=== PATIENT | male | born 1940 | race Caucasian/White ===

== ENCOUNTER 2018-02-12 05:09 | Inpatient (IN) ==
[2018-02-12] MEDS ORDERED: Dexamethasone Inj 20 MG/5 ML Vial IV.PUSH SCH (05:40)
[2018-02-12] MEDS ORDERED: Sodium Chlor 0.9% Inj 40 ML, Bupivacaine Liposo PF 1.3% Inj 20 ML, Bupivacaine/Epi PF 0... P-ARTICULR SCH ×3 (05:40)
[2018-02-12] MEDS ORDERED: Celecoxib 200 MG Capsule PO SCH (05:40)
[2018-02-12] MEDS ORDERED: Gabapentin 300 MG Capsule PO SCH (05:40)
[2018-02-12] MEDS ORDERED: Chlorhexidine Gluconate 2% 1 Pack (2 Cloths) TOPICAL ONE (05:45)
[2018-02-12] MEDS ORDERED: Sodium Chlor 0.9% Inj 500 ML IV.CONT ONE (05:45)
[2018-02-12] MEDS ORDERED: Metoprolol Tartrate 25 MG Tablet PO ONE (05:45)
[2018-02-12] MEDS ORDERED: Chlorhexidine 4% Topical 120 APPLIC/120 ML Bottle TOPICAL SCH (05:45)
[2018-02-12] MEDS ORDERED: Famotidine PF Inj 20 MG/2 ML Vial IV.PUSH SCH (06:00)
[2018-02-12] MEDS ORDERED: TRANEXAMIC ACID IV.SIG SCH (06:00)
[2018-02-12] MEDS ORDERED: ceFAZolin 2 GM Premix Inj 2 GM/50 ML PIGGYBACK IV.SIG SCH (06:00)
[2018-02-12] MEDS ORDERED: SODIUM CHLOR 0.9% IV.SIG SCH (06:00)
[2018-02-12] MEDS ORDERED: fentaNYL Citrate Inj 100 MCG/2 ML Ampul ONE (06:17)
[2018-02-12] MEDS ORDERED: fentaNYL Citrate Inj 250 MCG/5 ML Ampul ONE (06:18)
[2018-02-12] MEDS ORDERED: Famotidine PF Inj 20 MG/2 ML Vial ONE (06:18)
[2018-02-12] MEDS ORDERED: Tobramycin Sulfate 1,200 MG Vial (for ortho/sterile core) OTHER ONE (06:21)
[2018-02-12] MEDS ORDERED: Ketamine Inj 50 MG/5 ML Syringe IV.PUSH ONE (06:29)
[2018-02-12] MEDS: Vancomycin Inj 1,000 MG in Sodium Chlor 0.9% Inj 250 ML IV.SIG SCH ×2 (06:40→17:40)
[2018-02-12] MEDS ORDERED: Sugammadex Inj 200 MG/2 ML Vial IV.PUSH ONE (09:00)
[2018-02-12] MEDS ORDERED: prednisoLONE Acetate 1% Opth Susp 5 ML Bottle EACH EYE SCH (09:00)
[2018-02-12] MEDS ORDERED: Post-op Orders (for Pharmacy) OTHER STA (09:01)
--- NOTE | 2018-02-12 09:08 | P.OP ---
- Preoperative Diagnosis (1) Primary osteoarthritis of right hip Date of procedure: 02/12/18 Procedure: Right total hip arthroplasty by anterior approach Anesthesia: GETA Surgeon: Migel Mg MD Lip Cutter And Scorer: SAMMI Holley PA-C The surgical procedure was assisted by my physician marketing assistant manager. My P.A. presence was necessary throughout this case for the manipulation and positioning of the surgical extremity. My P.A. was assisting me throughout the duration of this procedure. The skill set of a physician marketing assistant manager was medically necessary to complete this procedure. During the surgical case the laboratory technologist was working at the back table and the physician marketing assistant manager was directly assisting me. Operation and Findings: PLAN OF ACTIVITY Weight bear as tolerated. IMPLANTS USED DePuy Corail size [15] collared stem with a size [54] Stringer Gription cup, [54 /36] Altrx poly liner, and a [36 +5] metal head. DETAILS OF PROCEDURE: This patient has a long history of hip pain. Patient was found to have severe osteoarthritis. The patient had radiographic evidence of joint space narrowing with [id number] arthritis and osteophytes around the acetabulum as well as the femoral head. There was also some cystic changes. The patient failed conservative treatment with pain medications, anti-inflammatories, physical therapy, assistive devices including a cane, as well as therapeutic injection of the hip. Patient's hip arthritis was limiting his ability to ambulate and perform activities of daily living. The patient wished to proceed with surgery and informed consent was obtained. Operative site was marked. I discussed both posterior approach and anterior approach with the patient and decision was made for anterior approach. Patient was brought to OR and placed on OR table. IV sedation and general anesthesia was administered by anesthesiologist. Patient positioned on a Marjan table and was given IV antibiotics. Time-out procedure was performed. The hip and thigh were prepped with alcohol followed by Hibiclens. The thigh was draped in the usual sterile fashion. Clean Air Suite was used for this procedure. The procedure began with a 5-inch incision over the anterolateral thigh. Subcutaneous tissue was dissected with Bovie. The fascia over the tensa fasciae latae was incised. Care was taken to avoid injury to the lateral femoral cutaneous nerve. The tensor muscle was retracted laterally. Sartorius was retracted medially. Retractors were now placed. The reflected head of the rectus is now elevated. A capsulotomy was performed over the anterior head capsule. Sutures were placed to help retract the capsule. At this point the femoral head and neck were identified. With soft tissue protected, oscillating saw was used to make a cut through the femoral neck, the femoral head was now removed. At this point attention was turned to preparation of the acetabulum. The labrum was excised. The acetabulum was sequentially reamed up to size [54]. A Stringer cup was now placed. Fluoroscopy was used to aid in identification of appropriate version. Cup was fully impacted and found to have excellent fit. Hole eliminator was now placed. A screw was placed through the shell and the acetabular dome. Fluoroscopy confirmed appropriate screw placement. The liner was now impacted into the cup. At this point the hip was externally rotated. A hook was placed around the proximal femur. The capsule was released off the lateral and medial femur. The hip was now extended and adducted. Retractors were placed around the proximal femur to allow for exposure. A box osteotome was used to remove the lateral cortex of the femoral neck. A broach was used to help lateralize the prosthesis. Canal finder was used to create a path down the canal. Next, the canal was sequentially broached up to size [15]. This was found to be an excellent fit. Calcar planer was placed. A standard head was placed, and the hip was reduced. The hip was found to have excellent stability with good range of motion. The leg lengths were measured under fluoroscopy and found to be equal compared to preoperatively. Trial broach was removed. The Corail stem was opened. Stem was fully impacted into the proximal femur in appropriate version. The femoral head was placed. The hip was again reduced. Fluoroscopy confirmed excellent alignment of prosthesis. The wound was thoroughly irrigated and capsule was closed with #1 Vicryl. The fascia over the tensor fasciae muscle was closed with #1 Vicryl, subcutaneous tissue was closed with 3-0 Vicryl and the skin was closed with maryanne and Dermabond skin closure. A drain was placed deep prior to closure. The capsule layers, muscle, and subcutaneous tissue were injected with a mixture of saline and bupivicaine. Dressings were applied. The patient was transferred to Recovery Room in stable condition.
[2018-02-12] MEDS ORDERED: Promethazine 25 MG Supp RECTAL PRN (10:00)
[2018-02-12] MEDS ORDERED: Bisacodyl 10 MG Supp RECTAL PRN (10:00)
[2018-02-12] MEDS ORDERED: Morphine Inj 4 MG/ML Vial IV.PUSH PRN (10:00)
[2018-02-12 10:02] LABS: Baso % (Auto) 0.1 % (0.0-2.0); Lymph # (Auto) 0.8 th/mm3 (1.0-4.8); Lymph % (Auto) 4.8 % (9.0-44.0); Mean Corpuscular HGB Conc 32.6 % (32.0-36.0); Mean Corpuscular Hemoglobin 26.9 pg (27.0-34.0); Mean Corpuscular Volume 82.4 fL (80.0-100.0); Mean Platelet Volume 7.1 fL (7.0-11.0); Mono # (Auto) 0.4 th/mm3 (0.0-0.9); Mono % (Auto) 2.7 % (0.0-8.0); Neut # (Auto) 14.6 th/mm3 (1.8-7.7); Neut % (Auto) 92.4 % (16.0-70.0); Platelet Count 259 th/mm3 (150-450); Red Blood Count 3.16 mil/mm3 (4.50-5.90); Red Cell Distribution Width 18.2 % (11.6-17.2); White Blood Count 15.9 th/mm3 (4.0-11.0)
[2018-02-12 10:07] LABS: Hemoglobin 8.5 gm/dL (13.0-17.0)
[2018-02-12] MEDS ORDERED: Tranexamic Acid Inj 1,000 MG in Sodium Chlor 0.9% Inj 100 ML IV.SIG SCH (11:00)
[2018-02-12] MEDS ORDERED: CYCLOSPORINE 0.05% EACH EYE SCH (11:00)
[2018-02-12 11:13] LABS: Hemoglobin 7.7 gm/dL (13.0-17.0)
[2018-02-12 11:18] LABS: Hematocrit 23.6 % (39.0-51.0)
[2018-02-12] MEDS: Calcium/Vitamin D 250/125 MG Tablet PO SCH ×2 (13:53→17:48)
--- NOTE | 2018-02-12 15:28 | XR ---
EXAM DATE: 02/12/2018 3:06 PM EST AGE/SEX: 77 years / Male INDICATIONS: Right total hip. CLINICAL DATA: This is the patient's initial encounter. Patient reports that signs and symptoms have been present for 1 day and indicates a pain score of Nonresponsive. MEDICAL/SURGICAL HISTORY: Non-responsive. Non-responsive. COMPARISON: No prior exams available for comparison. FINDINGS: 3 spot images obtained in the operating room during a procedure demonstrates right total hip arthropl asty hardware in place. The acetabular component contains a single superior screw. The distal aspect of the screw is not visualized. The femoral component contains a medial collar and is noncemented. No unexpected finding is identified. CONCLUSION: Images document right total hip arthroplasty hardware, as above. Electronically signed by: Trell Gardner MD Board Certified Radiologist 02/12/2018 3:26 PM EST
[2018-02-12] MEDS: ceFAZolin 2 GM Premix Inj 2 GM/50 ML PIGGYBACK IV.SIG SCH ×2 (15:47→23:59)
--- NOTE | 2018-02-12 17:17 | P.CONIM ---
History of Present Illness Service: Hospitalist Consult date: 02/12/18 Requesting Physician: Migel Mg Reason for Consult: Medical management Primary Care Provider: Dr Katherine Espinoza Chief Complaint: Hip pain History of Present Illness: Patient is a 77-year-old male with a past medical history of hip pain/osteoarthritis, A. fib on Eliquis, hypertension, hyperlipidemia, glaucoma, and COPD (patient denies but is reliant upon inhalers) . Patient was admitted due to his right-sided hip pain which failed conservative management. A right total hip arthroplasty with anterior approach was done by Dr. Migel Mg on 01/13/18. Hospitalist service consulted for medical management. Patient is seen lying in bed post surgery. His is at bedside. Reports that his pain is well controlled. He is not having any shortness of breath or chest pain. No syncope or dizziness. No nausea vomiting or diarrhea. Nursing is noted to be hanging second bag of PRBCs. Reports that first bag was tolerated well with no adverse events.. Review of Systems Review of Systems: all other systems reviewed are negative [facility] Medical History Medical History Afib (Acute) Ambulates with cane (Acute) Arthritis (Acute) Depression (Acute) Full dentures (Acute) GERD (gastroesophageal reflux disease) (Acute) Glaucoma (Acute) Hypertension (Acute) Respiratory disorder (Acute) Thrush of mouth and esophagus (Acute) Wears glasses (Acute) Wears hearing aid in both ears (Acute) Wears partial dentures (Acute) Surgical History Surgical History H/O colonoscopy (Acute) History of esophagogastroduodenoscopy (EGD) (Acute) History of colostomy (Acute) History of colostomy reversal (Acute) History of corneal transplant (Acute) History of partial colectomy (Acute) History of total left knee replacement (TKR) (Acute) History of total right knee replacement (Acute) S/P ablation of atrial fibrillation (Acute) Status post cataract extraction of both eyes with insertion of intraocular lens (Acute) Social History Social History Substance History: No History of Abuse Second Hand Smoke Exposure: No Smoking Status: Smoker, status unknown Tobacco Type: Cigarettes How Often Do You Have a Drink Containing Alcohol: 2 to 4 times a month Recent Travel in [place] within the Last 8 Weeks: No Recent Out of Country Travel within the Last 8 Weeks: No Immunization History Hx Influenza Vaccine This Season: Yes Medications and Allergies Allergies Allergy/AdvReac Type Severity Reaction Status Date / Time No Known Allergies Allergy Verified 02/04/18 09:19 Home Medications Medication Instructions Recorded Confirmed Type albuterol sulfate 2 puff INHALATION Q6H PRN 02/04/18 02/12/18 History apixaban 5 mg PO BID 02/04/18 02/12/18 History brimonidine 1 drp OPHTHALMIC (EYE) TID 02/04/18 02/12/18 History bumetanide 2 mg PO DAILY 02/04/18 02/12/18 History cholecalciferol (vitamin D3) 2,000 unit PO DAILY 02/04/18 02/12/18 History [Vitamin D3] cyclosporine 1 drp OPHTHALMIC (EYE) Q12H 02/04/18 02/12/18 History latanoprost 1 drp OPHTHALMIC (EYE) QPM 02/04/18 02/12/18 History metoprolol succinate 25 mg PO DAILY 02/04/18 02/12/18 History pantoprazole 40 mg PO DAILY 02/04/18 02/12/18 History potassium chloride 20 meq PO BID 02/04/18 02/12/18 History prednisolone acetate 1 drp OPHTHALMIC (EYE) DAILY 02/04/18 02/12/18 History sertraline 100 mg PO DAILY 02/04/18 02/12/18 History simvastatin 20 mg PO QPM 02/04/18 02/12/18 History tiotropium bromide 1 cap INHALATION DAILY 02/04/18 02/12/18 History vitamins A,C,F-[id number] 1 cap PO BID 02/04/18 02/12/18 History [PreserVision AREDS] Active Medications: Active Medications Acetaminophen (Ofirmev Inj) 1,000 mg IV.SIG ONCE ELIU Stop: 02/12/18 21:00 Last Admin: 02/12/18 06:18 Dose: 1,000 mg Hydrocodone Bitart/Acetaminophen ([place] 10/325) 1 tab PO Q3H PRN PRN Reason: Pain Scale 8 to 10 Hydrocodone Bitart/Acetaminophen ([place] 5/325) 1 tab PO Q3H PRN PRN Reason: PAIN SCALE 3 TO 5 Hydrocodone Bitart/Acetaminophen ([place] 7.5/325) 1 tab PO Q3H PRN PRN Reason: Pain Scale 6 to 7 Al Hydroxide/Mg Hydroxide (Milk Of Magnesia Liq) 30 ml PO BID PRN PRN Reason: MILD CONSTIPATION Albuterol (Ventolin Hfa Inh) 2 puff INH Q6H PRN PRN Reason: Shortness Of Breath Apixaban (Eliquis) 5 mg PO BID [facility] Bisacodyl (Dulcolax Supp) 10 mg RECTAL DAILY PRN PRN Reason: SEVERE CONSITIPATION Brimonidine Tartrate (Alphagan P 0.15% Opth Drops) 1 drops EACH EYE TID [facility] Bumetanide (Bumex) 2 mg PO DAILY [facility] Calcium/Vitamin D (Oscal With D 250/125 Mg) 1 tab PO TID [facility] Last Admin: 02/12/18 13:53 Dose: 1 tab Celecoxib (Celebrex) 400 mg PO ONCE [facility] Stop: 02/12/18 21:00 Last Admin: 02/12/18 06:26 Dose: 400 mg Chlorhexidine Gluconate (Hibiclens 4% Topical) 1 applicatio TOPICAL ONCE [facility] Stop: 02/16/18 05:44 Last Admin: 02/12/18 06:00 Dose: 1 applicatio Sodium Chloride 40 ml/Bupivacaine Liposome 20 ml/Bupivacaine HCl/Epinephrine Bitart 20 ml 0 ml P-ARTICULR ONCE [facility] Stop: 02/12/18 21:00 Last Admin: 02/12/18 07:49 Dose: 60 bag Dexamethasone Sodium Phosphate (Decadron Inj) 10 mg IV.PUSH ONCE [facility] Stop: 02/12/18 21:00 Last Admin: 02/12/18 06:11 Dose: 10 mg Diphenhydramine HCl (Benadryl) 25 mg PO Q6H PRN PRN Reason: ITCHING Famotidine (Pepcid Pf Inj) 20 mg IV.PUSH ONCE [facility] Stop: 02/12/18 21:00 Last Admin: 02/12/18 06:14 Dose: 20 mg Gabapentin (Neurontin) 300 mg PO ONCE [facility] Stop: 02/12/18 21:00 Last Admin: 02/12/18 06:26 Dose: 300 mg Lactated Ringer's (Lr 1000 Ml Inj) 1,000 mls @ 30 mls/hr IV.CONT .Q24H ONE Stop: 02/13/18 05:44 Last Admin: 02/12/18 06:10 Dose: 30 mls/hr Sodium Chloride (Ns Inj) 500 mls @ 30 mls/hr IV.CONT .[id number] ONE Stop: 02/12/18 22:24 Last Admin: 02/12/18 06:38 Dose: Not Given Cefazolin Sodium/Dextrose (Ancef 2 Gm Premix Inj) 2 gm in 50 mls @ 100 mls/hr IV.SIG CLINICAL TRIAL COORDINATOR ELIU Stop: 02/16/18 05:59 Last Infusion: 02/12/18 07:50 Dose: Infused Tranexamic Acid 1,683 mg/ (Sodium Chloride) 116.83 mls @ 200 mls/hr IV.SIG ONCE ELIU Stop: 02/12/18 21:00 Last Infusion: 02/12/18 07:47 Dose: Infused Vancomycin HCl 1,000 mg/ (Sodium Chloride) 250 mls @ 250 mls/hr IV.SIG CLINICAL TRIAL COORDINATOR ELIU Stop: 02/15/18 05:42 Last Infusion: 02/12/18 07:48 Dose: Infused Acetaminophen (Ofirmev Inj) 1,000 mg in 100 mls @ 400 mls/hr IV.SIG Q12H ELIU Stop: 02/14/18 06:14 Cefazolin Sodium/Dextrose (Ancef 2 Gm Premix Inj) 2 gm in 50 mls @ 200 mls/hr IV.SIG Q8H ELIU Stop: 02/13/18 08:14 Last Infusion: 02/12/18 16:02 Dose: Infused Lactated Ringer's (Lr 1000 Ml Inj) 1,000 mls @ 80 mls/hr IV.CONT .[id number] ELIU Last Admin: 02/12/18 10:03 Dose: 80 mls/hr Vancomycin HCl 1,000 mg/ (Sodium Chloride) 250 mls @ 200 mls/hr IV.SIG Q12H ELIU Stop: 02/13/18 07:14 Lactulose (Lactulose Liq) 30 ml PO DAILY PRN PRN Reason: SEVERE CONSITIPATION Latanoprost (Xalatan 0.005% Opth Drops) 1 drop EACH EYE QPM [facility] Metoprolol Succinate (Toprol Xl) 25 mg PO DAILY [facility] Miscellaneous Information (Misc Nursing Information) 0 each OTHER UNSCH PRN PRN Reason: SEE LABEL COMMENTS Stop: 02/13/18 09:26 Morphine Sulfate (Morphine Inj) 3 mg IV.PUSH Q3H PRN PRN Reason: BREAKTHROUGH PAIN Multivitamins/Minerals (Ocuvite With Lutein) 1 tab PO BID [facility] Ondansetron HCl (Zofran Inj) 4 mg IV.PUSH ONCE [facility] Stop: 02/12/18 21:00 Last Admin: 02/12/18 06:16 Dose: 4 mg Ondansetron HCl (Zofran Odt) 4 mg PO Q6H PRN PRN Reason: NAUSEA OR VOMITING Pantoprazole Sodium (Protonix) 40 mg PO DAILY [facility] Cyclosporine 0.05% 1 (Drop Each Eye Bid) 0 each EACH EYE BID [facility] Potassium Chloride (K-Dur) 20 meq PO BID [facility] Povidone Iodine (Betadine 10% Oint) 1 applicatio TOPICAL ONCE [facility] Stop: 02/12/18 21:00 Pravastatin Sodium (Pravachol) 40 mg PO QPM [facility] Prednisolone Acetate (Pred Forte 1% Opth Susp) 1 drop EACH EYE DAILY [facility] Promethazine HCl (Phenergan) 25 mg PO Q6H PRN PRN Reason: NAUSEA OR VOMITING Promethazine HCl (Phenergan Supp) 25 mg RECTAL Q6H PRN PRN Reason: NAUSEA OR VOMITING Senna/Docusate Sodium (Ivory-Colace) 1 tab PO BID [facility] Sennosides (Senokot) 17.2 mg PO BID PRN PRN Reason: Moderate Constipation Sertraline HCl (Zoloft) 100 mg PO DAILY [facility] Sodium Chloride (Ns Flush) 2 ml IV.FLUSH BID [facility] Sodium Chloride (Ns Flush) 2 ml IV.FLUSH PRN PRN PRN Reason: FLUSH AFTER USING IV ACCESS Tiotropium [place] (Spiriva 18 Mcg Inh) 18 mcg INH DAILY [facility] Vitamin D (Vitamin D3) 2,000 unit PO DAILY [facility] Physical Exam Vital signs: Last Vital Signs Temp 97.6 F 02/12/18 16:50 Pulse 75 02/12/18 16:50 Resp 19 02/12/18 16:50 BP 110/59 L 02/12/18 16:50 Pulse Ox 96 12/18/18 12:32 Intake & Output 02/10/18 02/11/18 02/12/18 02/13/18 06:59 06:59 06:59 06:59 Intake Total 2776.83 / 2776.83 Output Total 400 / 400 Balance 2376.83 / 2376.83 Weight 112.2 kg 112.2 kg Narrative: GENERAL: Well-nourished, well-developed adult male in no obvious distress. SKIN: Warm and dry. HEAD: Atraumatic. Normocephalic. CARDIOVASCULAR: Regular rate and rhythm. Murmur. RESPIRATORY: No accessory muscle use. Clear to auscultation. Breath sounds equal bilaterally. GASTROINTESTINAL: Abdomen obese, soft, non-tender, non-distended. Positive bowel sounds. MUSCULOSKELETAL: Extremities without clubbing, cyanosis, or edema. No obvious deformities. Surgical dressing with drain on right hip. Draining sanguinous fluid. Dressing dry and intact. Toes warm and well-perfused. NEUROLOGICAL: Awake and alert. No obvious cranial nerve deficits. Motor grossly within normal limits. Normal speech. PSYCHIATRIC: Appropriate mood and affect; insight and judgment good. Results Labs CBC & Chem 7: 02/12/18 10:30 Imaging Impressions Hip X-Ray 02/12/18 00:00 CONCLUSION: Images document right total hip arthroplasty hardware, as above. ABG Impressions Hip X-Ray 02/12/18 00:00 CONCLUSION: Images document right total hip arthroplasty hardware, as above. Assessment and Plan Plan Patient is a 77-year-old male with a past medical history of hip pain/ osteoarthritis, A. fib on Eliquis, hypertension, hyperlipidemia, glaucoma, and COPD (patient denies but is reliant upon inhalers). Patient was admitted due to his right-sided hip pain which failed conservative management. Right-sided hip pain -right total hip arthroplasty with anterior approach done 01/13/18 -Managed by Ortho -PT eval ordered Leukocytosis -Afebrile; possibly reactive -Repeat in a.m. -Patient on Ancef per primary Postoperative anemia -Received 2 units PBRCs 02/12 -Monitor labs; Monitor for fluid overload A. fib; chronic -Restart Eliquis 02/13 Restart medications for other chronic conditions as indicated. Patient has brought in his home eyedrops for glaucoma -okay to use. DVT prophylaxis: On Eliquis Discharge planning: To be determined Thank you for this consult. We look forward to assisting you with the medical management of this patient.
[2018-02-12] MEDS: Latanoprost 0.005% Opth Drops 2.5 ML Bottle EACH EYE SCH (17:53)
[2018-02-12] MEDS ORDERED: Vancomycin Inj 1 GM/200 ML PIGGYBACK IV.SIG SCH (18:00)
[2018-02-12] MEDS: Vitamins A,C,E/Lutein/Minerals Tablet PO SCH (20:59)
[2018-02-12] MEDS: Senna/Docusate Sodium 8.6/50 MG Tablet PO SCH (20:59)
[2018-02-13] MEDS: Brimonidine 0.15% Opth Drops 5 ML Bottle EACH EYE SCH ×4 (00:38→17:24)
[2018-02-13] MEDS: Vancomycin Inj 1,000 MG in Sodium Chlor 0.9% Inj 250 ML IV.SIG SCH ×2 (05:04→05:23)
[2018-02-13 05:39] LABS: Baso % (Auto) 0.2 % (0.0-2.0); Eos % (Auto) 0.2 % (0.0-4.0); Hematocrit 24.1 % (39.0-51.0); Hemoglobin 7.9 gm/dL (13.0-17.0); Lymph # (Auto) 1.7 th/mm3 (1.0-4.8); Lymph % (Auto) 12.6 % (9.0-44.0); Mean Corpuscular HGB Conc 32.7 % (32.0-36.0); Mean Corpuscular Volume 82.8 fL (80.0-100.0); Mean Platelet Volume 7.7 fL (7.0-11.0); Mono # (Auto) 1.7 th/mm3 (0.0-0.9); Mono % (Auto) 12.8 % (0.0-8.0); Neut # (Auto) 9.9 th/mm3 (1.8-7.7); Neut % (Auto) 74.2 % (16.0-70.0); Platelet Count 206 th/mm3 (150-450); Red Blood Count 2.91 mil/mm3 (4.50-5.90); White Blood Count 13.3 th/mm3 (4.0-11.0)
[2018-02-13] MEDS ORDERED: Sodium Chlor 0.9% Inj 250 ML IV.SIG SCH (07:00)
[2018-02-13] MEDS: Tiotropium Bromide 18 MCG/ACT Inhaler INH SCH (08:22)
[2018-02-13] MEDS: Vitamins A,C,E/Lutein/Minerals Tablet PO SCH ×2 (08:22→20:35)
[2018-02-13] MEDS: Senna/Docusate Sodium 8.6/50 MG Tablet PO SCH ×2 (08:23→20:36)
[2018-02-13] MEDS: Calcium/Vitamin D 250/125 MG Tablet PO SCH ×3 (08:24→17:16)
[2018-02-13] MEDS: Sertraline 100 MG Tablet PO SCH (08:24)
--- NOTE | 2018-02-13 08:54 | P.PNOP ---
Subjective Interval history: Patient states he is doing extremely well. Moderate drainage over night. Physical Exam Vital signs: Vital Signs 02/12/18 09:30 02/12/18 09:45 02/12/18 10:00 Temperature 97.8 F Pulse Rate 88 81 76 Respiratory Rate 18 18 18 Blood Pressure 116/59 L 123/56 L 117/56 L Pulse Oximetry 99 95 95 02/12/18 10:15 02/12/18 10:30 02/12/18 10:45 Temperature Pulse Rate 79 75 74 Respiratory Rate 18 18 18 Blood Pressure 119/56 L 110/56 L 109/55 L Pulse Oximetry 95 95 95 02/12/18 11:00 02/12/18 11:15 02/12/18 11:30 Temperature Pulse Rate 74 78 73 Respiratory Rate 18 Blood Pressure 100/56 L 99/54 L 112/57 L Pulse Oximetry 95 95 95 02/12/18 11:45 02/12/18 11:57 02/12/18 12:00 Temperature 97.6 F Pulse Rate 75 70 76 Respiratory Rate 18 18 18 Blood Pressure 107/55 L 102/58 L 107/54 L Pulse Oximetry 95 95 95 02/12/18 12:15 02/12/18 12:32 02/12/18 16:50 Temperature 97.7 F 97.1 F L 97.6 F Pulse Rate 75 70 75 Respiratory Rate 18 16 19 Blood Pressure 106/59 L 100/57 L 110/59 L Pulse Oximetry 95 96 02/12/18 17:11 02/12/18 20:05 02/12/18 23:40 Temperature 97.5 F L 98.2 F 97.7 F Pulse Rate 79 77 72 Respiratory Rate 18 18 18 Blood Pressure 125/60 109/56 L 103/57 L Pulse Oximetry 92 L 93 L 02/13/18 03:40 02/13/18 08:40 Temperature 97.8 F 98.4 F Pulse Rate 72 77 Respiratory Rate 17 20 Blood Pressure 106/52 L 118/59 L Pulse Oximetry 92 L Intake & Output 02/12/18 02/13/18 02/13/18 18:59 06:59 18:59 Intake Total 2876.83 / 2876.83 1290 / 1290 Output Total 470 / 470 230 / 230 Balance 2406.83 / 2406.83 1060 / 1060 Weight 112.2 kg 112.2 kg Intake: IV 676.83 / 676.83 650 / 650 Ofirmev Inj 1,000 mg In 100 ml 100 / 100 100 / 100 @ 400 mls/hr IV.SIG Q12H ELIU Rx #:[id number] Cyklokapron Inj 1,000 MG In NS 226.83 / 226.83 Inj 100 ML @ 200 mls/hr IV.SIG ONCE ELIU Rx#:[id number] Vancomycin Inj 1,000 MG In NS 250 / 250 500 / 500 Inj 250 ML @ 200 mls/hr IV.SIG Q12H ELIU Rx#:[id number] Ancef 2 GM Premix Inj 2 gm In 100 / 100 50 / 50 50 ml @ 200 mls/hr IV.SIG Q8H ELIU Rx#:[id number] Oral 240 / 240 Anesthesia Amount 1800 / 1800 Intake (Blood Product) Amt 400 / 400 400 / 400 Rbc As-3 Leukoreduced Unit 0 / 0 400 / 400 [id number] Rbc As-3 Leukoreduced Unit 400 / 400 [id number] Output: Urine 200 / 200 Estimated Blood Loss 400 / 400 Wound Drainage 70 / 70 30 / 30 # 1 Right Hip GILLES Drain 70 / 70 30 / 30 Other: Date of Last Bowel Movement 02/11/18 02/11/18 # Bowel Movements 0 Narrative: Right lower extremity: surgical incision clean dry and intact. Drain site with moderate drainage. Drain with 30cc overnight. minimal swelling surrounding incision. Mild tenderness with passive range of motion of hip. distally NVI. Results - Labs CBC & Chem 7: 02/13/18 04:43 Laboratory Results - last 24 hr 02/12/18 02/12/18 02/12/18 09:54 10:30 10:54 WBC 15.9 H RBC 3.16 L Hgb 8.5 L 7.7 L Hct 26.0 L 23.6 L MCV 82.4 MCH 26.9 L MCHC 32.6 RDW 18.2 H Plt Count 259 MPV 7.1 Neut % (Auto) 92.4 H Lymph % (Auto) 4.8 L [place] % (Auto) 2.7 Eos % (Auto) 0.0 Baso % (Auto) 0.1 Neut # (Auto) 14.6 H Lymph # (Auto) 0.8 L [place] # (Auto) 0.4 Eos # (Auto) 0.0 Baso # (Auto) 0.0 WBC Differential . Differential Comment Auto diff final MTS Gel Crossmatch See Detail 02/13/18 02/13/18 04:43 06:47 WBC 13.3 H RBC 2.91 L Hgb 7.9 L Hct 24.1 L MCV 82.8 MCH 27.0 MCHC 32.7 RDW 17.0 Plt Count 206 MPV 7.7 Neut % (Auto) 74.2 H Lymph % (Auto) 12.6 [place] % (Auto) 12.8 H Eos % (Auto) 0.2 Baso % (Auto) 0.2 Neut # (Auto) 9.9 H Lymph # (Auto) 1.7 [place] # (Auto) 1.7 H Eos # (Auto) 0.0 Baso # (Auto) 0.0 WBC Differential . Differential Comment Auto diff final MTS Gel Crossmatch See Detail - Imaging Impressions Hip X-Ray 02/12/18 00:00 CONCLUSION: Images document right total hip arthroplasty hardware, as above. Assessment and Plan - Assessment and Plan Right HIEU anterior approach POD #1 PT WBAT BID drain care hold eliquis, begin POD #2 maintain dressing over incision. daily dressing changes over drain site. Give 2 units PRB's H&H tomorrow AM
[2018-02-13] MEDS: ceFAZolin 2 GM Premix Inj 2 GM/50 ML PIGGYBACK IV.SIG SCH (10:23)
--- NOTE | 2018-02-13 11:29 | P.PNIM ---
Subjective Interval history: Patient is seen sitting up in bed. Nursing is at bedside. Patient tells me that he is feeling good and wonders when he can go home. No dizziness, syncope. No shortness of breath or chest pain. No nausea or vomiting. Nursing has not seen any indication bleeding/blood loss other than drain. Physical Exam Vital signs: Last Vital Signs Temp 97.8 F 02/13/18 09:00 Pulse 73 02/13/18 09:00 Resp 22 02/13/18 09:00 BP 147/67 H 02/13/18 09:00 Pulse Ox 94 L 02/13/18 09:00 Intake & Output 02/11/18 02/12/18 02/13/18 02/14/18 06:59 06:59 06:59 06:59 Intake Total 4166.83 / 4166.83 50 / 50 Output Total 700 / 700 600 / 600 Balance 3466.83 / 3466.83 -550 / -550 Weight 112.2 kg 112.2 kg Narrative: Narrative: GENERAL: Well-nourished, well-developed adult male in no obvious distress. SKIN: Warm and dry. HEAD: Atraumatic. Normocephalic. CARDIOVASCULAR: Regular rate and rhythm. Murmur. RESPIRATORY: No accessory muscle use. Clear to auscultation. Breath sounds equal bilaterally. GASTROINTESTINAL: Abdomen obese, soft, non-tender, non-distended. Positive bowel sounds. MUSCULOSKELETAL: Extremities without clubbing, cyanosis, or edema. No obvious deformities. Surgical dressing with drain on right hip. Draining sanguinous fluid. Dressing dry and intact. Toes warm and well-perfused. NEUROLOGICAL: Awake and alert. No obvious cranial nerve deficits. Motor grossly within normal limits. Normal speech. Results Labs CBC & Chem 7: 02/13/18 04:43 Imaging Imaging: Impressions Hip X-Ray 02/12/18 00:00 CONCLUSION: Images document right total hip arthroplasty hardware, as above. Assessment and Plan Plan Patient is a 77-year-old male with a past medical history of hip pain/ osteoarthritis, A. fib on Eliquis, hypertension, hyperlipidemia, glaucoma, and COPD (patient denies but is reliant upon inhalers). Patient was admitted due to his right-sided hip pain which failed conservative management. Right-sided hip pain -right total hip arthroplasty with anterior approach done 01/13/18 -Managed by Ortho -PT eval ordered Leukocytosis -Afebrile; possibly reactive -Trending down; monitor -Patient on Ancef per primary Postoperative anemia -Received 2 units PBRCs 02/12; addt'l 2 unit PRBC today -Monitor labs; Monitor for fluid overload A. fib; chronic -Hold Eliquis per ortho; restart POD #2 Restart medications for other chronic conditions as indicated. Patient has brought in his home eyedrops for glaucoma -okay to use. DVT prophylaxis: On Eliquis Discharge planning: To be determined Progress Note: Quality VTE Deep Vein Thrombosis/Pulmonary Embolism Present on Admission: No
[2018-02-13] MEDS: prednisoLONE Acetate 1% Opth Susp 5 ML Bottle EACH EYE SCH (13:58)
[2018-02-13] MEDS: Latanoprost 0.005% Opth Drops 2.5 ML Bottle EACH EYE SCH (17:28)
[2018-02-13 18:14] VITALS: RESP 18
[2018-02-14 05:13] LABS: Hemoglobin 9.3 gm/dL (13.0-17.0)
--- NOTE | 2018-02-14 06:34 | P.PNOP ---
Subjective Interval history: POD 2 s/p Right HIEU doing better. states feeling good. states has not been out of bed much with therapy Physical Exam Vital signs: Vital Signs 02/13/18 08:00 02/13/18 08:40 02/13/18 09:00 Temperature 98.4 F 98.4 F 97.8 F Pulse Rate 77 77 73 Respiratory Rate 20 20 22 Blood Pressure 118/59 L 118/59 L 147/67 H Pulse Oximetry 95 94 L 02/13/18 11:50 02/13/18 12:00 02/13/18 12:20 Temperature 98.1 F 98.1 F 98.1 F Pulse Rate 76 76 77 Respiratory Rate 20 20 20 Blood Pressure 124/59 L 124/59 L 126/94 H Pulse Oximetry 94 L 94 L 92 L 02/13/18 16:00 02/13/18 19:50 02/14/18 00:00 Temperature 98.3 F 97.6 F 97.7 F Pulse Rate 75 67 69 Respiratory Rate 18 18 18 Blood Pressure 123/60 110/56 L 111/57 L Pulse Oximetry 94 L 94 L 94 L 02/14/18 04:12 02/14/18 05:29 Temperature 98.1 F Pulse Rate 67 Respiratory Rate 18 18 Blood Pressure 107/65 Pulse Oximetry 93 L Intake & Output 02/13/18 02/13/18 02/14/18 06:59 18:59 06:59 Intake Total 1290 / 1290 1750 / 1750 400 / 400 Output Total 230 / 230 1160 / 1160 980 / 980 Balance 1060 / 1060 590 / 590 -580 / -580 Weight 112.2 kg 116.2 kg Intake: IV 650 / 650 1150 / 1150 350 / 350 LR 1000 mL Inj 1,000 ML @ 80 1000 / 1000 mls/hr IV.CONT .[id number] ELIU Rx# :[id number] Ofirmev Inj 1,000 mg In 100 ml 100 / 100 100 / 100 100 / 100 @ 400 mls/hr IV.SIG Q12H ELIU Rx #:[id number] NS Inj 250 ML @ 15 mls/hr IV. 250 / 250 SIG ONCE ELIU Rx#:[id number] Vancomycin Inj 1,000 MG In NS 500 / 500 Inj 250 ML @ 200 mls/hr IV.SIG Q12H ELIU Rx#:[id number] Ancef 2 GM Premix Inj 2 gm In 50 / 50 50 / 50 50 ml @ 200 mls/hr IV.SIG Q8H ELIU Rx#:[id number] Oral 240 / 240 600 / 600 50 / 50 Intake (Blood Product) Amt 400 / 400 0 / 0 Rbc As-3 Leukoreduced Unit 0 / 0 [id number] Rbc As-3 Leukoreduced Unit 0 / 0 [id number] Rbc As-3 Leukoreduced Unit 400 / 400 [id number] Output: Urine 200 / 200 1100 / 1100 950 / 950 Wound Drainage 30 / 30 60 / 60 30 / 30 # 1 Right Hip GILLES Drain 30 / 30 60 / 60 30 / 30 Other: # Voids 2 Date of Last Bowel Movement 02/11/18 02/11/18 # Bowel Movements 0 0 Narrative: RLE: dressing clean and dry. intact. NVI Results - Labs CBC & Chem 7: 02/14/18 04:56 Laboratory Results - last 24 hr 02/12/18 02/13/18 02/14/18 10:54 06:47 04:56 Hgb 9.3 L Hct 28.0 L MTS Gel Crossmatch See Detail See Detail Assessment and Plan - Assessment and Plan 1) Right HIEU anterior approach POD #2 PT WBAT BID drain care - DC drain today hold eliquis, begin today maintain dressing over incision. daily dressing changes over drain site. H&H improved since blood given work with therapy today plan is for home with home PT today or tomorrow. given activity level, will likely be tomorrow will see how does today f/u with [facility] or [facility] in 2 weeks E-FORE Prescription Drug Monitoring Database has been queried and verified prior to prescribing the controlled substance. Acute pain exception. This patient has normal, predicted, physiological, and time limited response to an adverse mechanical stimulus associated with surgery, trauma, or acute illness as described in my notes. There is a lack of alternative treatment options other than to include the prescribed narcotic treatment for this condition.
[2018-02-14] MEDS: Vitamins A,C,E/Lutein/Minerals Tablet PO SCH (08:20)
[2018-02-14] MEDS: Sertraline 100 MG Tablet PO SCH (08:23)
[2018-02-14] MEDS: Calcium/Vitamin D 250/125 MG Tablet PO SCH ×2 (08:23→12:45)
[2018-02-14] MEDS: Senna/Docusate Sodium 8.6/50 MG Tablet PO SCH (08:23)
[2018-02-14] MEDS: Brimonidine 0.15% Opth Drops 5 ML Bottle EACH EYE SCH ×2 (08:24→12:46)
[2018-02-14] MEDS: Tiotropium Bromide 18 MCG/ACT Inhaler INH SCH (08:24)
[2018-02-14] MEDS: prednisoLONE Acetate 1% Opth Susp 5 ML Bottle EACH EYE SCH (08:25)
[2018-02-14 12:12] VITALS: PULSE 69
--- NOTE | 2018-02-14 15:39 | P.DCO ---
- Physical Therapy Physical Therapy: Gait training Hip: Total hip, Protocol: Right, Progress to weight bearing Right Lower Extremity Weight Bearing: Weight bearing as tolerated - Nursing Dressing changes: Daily dressing change, Coverderm/Primapore (begin adding xeroform POD 10) - Certification Need for Home Health services: I have seen patient Ozzy Montelongo on 02/14/18. My clinical findings support the need for the requested home health care services because: Need for Home Health Services: Limited mobility due to disease progression Homebound Certification: I certify that my clinical findings support that this patient is homebound because: Homebound Certification: Post-op weakness
[2018-02-14 17:03] VITALS: BP 113/68; TEMP 98.3; O2SAT 96
--- NOTE | 2018-02-14 19:42 | P.PNIM ---
Subjective Interval history: Patient is seen working with physical therapy. He is able to ambulate with walker without significant difficulty. No new complaints or concerns. No chest pain or shortness of breath. No nausea vomiting or diarrhea. He is looking forward to being discharged. Physical Exam Vital signs: Last Vital Signs Temp 98.3 F 02/14/18 16:00 Pulse 69 02/14/18 16:00 Resp 18 02/14/18 16:00 BP 113/68 02/14/18 16:00 Pulse Ox 96 02/14/18 16:00 Intake & Output 02/12/18 02/13/18 02/14/18 02/15/18 06:59 06:59 06:59 06:59 Intake Total 4166.83 / 4166.83 2150 / 2150 Output Total 700 / 700 2140 / 2140 Balance 3466.83 / 3466.83 Weight 112.2 kg 112.2 kg 116.2 kg Narrative: GENERAL: Well-nourished, well-developed adult male in no obvious distress. SKIN: Warm and dry. HEAD: Atraumatic. Normocephalic. CARDIOVASCULAR: Regular rate and rhythm. Murmur. RESPIRATORY: No accessory muscle use. Clear to auscultation. Breath sounds equal bilaterally. GASTROINTESTINAL: Abdomen obese, soft, non-tender, non-distended. Positive bowel sounds. MUSCULOSKELETAL: Extremities without clubbing, cyanosis, or edema. No obvious deformities. Surgical dressing with drain on right hip. Draining sanguinous fluid. Dressing dry and intact. Toes warm and well-perfused. NEUROLOGICAL: Awake and alert. No obvious cranial nerve deficits. Motor grossly within normal limits. Normal speech. Results Labs CBC & Chem 7: 02/14/18 04:56 Assessment and Plan (1) History of total hip replacement: Code(s): Z96.649 - Presence of unspecified artificial hip joint Status: Acute (2) Primary osteoarthritis of right hip: Code(s): M16.11 - Unilateral primary osteoarthritis, right hip Status: Acute Plan Patient is a 77-year-old male with a past medical history of hip pain/ osteoarthritis, A. fib on Eliquis, hypertension, hyperlipidemia, glaucoma, and COPD (patient denies but is reliant upon inhalers). Patient was admitted due to his right-sided hip pain which failed conservative management. Right-sided hip pain -resolved -right total hip arthroplasty with anterior approach done 01/13/18 -Managed by Ortho -PT eval ordered Leukocytosis -Afebrile; possibly reactive -Trending down; monitor -Patient on Ancef per primary Postoperative anemia -resolved -Received 2 units PBRCs 02/12; addt'l 2 unit PRBC today -Monitor labs; Monitor for fluid overload A. fib; chronic -Hold Eliquis per ortho; restart POD #2 Restart medications for other chronic conditions as indicated. Patient has brought in his home eyedrops for glaucoma -okay to use. DVT prophylaxis: On Eliquis Discharge planning: Patient is medically clear for discharge. Hospitalist service will sign off. Progress Note: Quality VTE Deep Vein Thrombosis/Pulmonary Embolism Present on Admission: No
== END 2018-02-14 17:40 | disposition home health service (06) ==
LOC: HSDI 05:09 → N06 12:36
PROVIDERS: ADMIT Orthopaedic Surgery Orthopaedic Trauma; ATTEND Orthopaedic Surgery Orthopaedic Trauma